=== PATIENT | male | born 1935 | race Caucasian/White ===

== ENCOUNTER 2021-11-29 11:25 | Observation (INO) ==
[2021-11-29] MEDS ORDERED: CeFAZolin Syr 2,000MG/20 ML 2,000 MG/20 ML SYRINGE IVPB ONE (11:40)
[2021-11-29] MEDS ORDERED: Ringers Solution, Lactated 1,000 ML IVC SCH ×2 (11:45→17:24)
[2021-11-29] MEDS ORDERED: Acetaminophen IV 1,000 MG/100 ML BAG IVPB ONE (12:30)
[2021-11-29] MEDS ORDERED: Albuterol 2.5 MG/3 ML NEBULIZER IH ONE (12:30)
[2021-11-29] MEDS ORDERED: Famotidine 20 MG/2 ML VIAL IVP ONE (12:30)
[2021-11-29] MEDS ORDERED: *HR* Remifentanil 1 MG VIAL IVP ONE (12:49)
[2021-11-29] MEDS ORDERED: Lidocaine HCL 4 ML Topical Solution (Laryng-O-Jet Kit Sterile Pak) TP ONE (13:14)
[2021-11-29] MEDS ORDERED: *HR* FentaNYL (PF) 100 MCG/2 ML VIAL ONE (13:14)
[2021-11-29] MEDS ORDERED: *HR* Propofol 200 MG/20 ML VIAL IVP ONE (13:14)
[2021-11-29] MEDS ORDERED: *HR* Rocuronium Bromide 50 MG/5 ML VIAL ONE (13:14)
[2021-11-29] MEDS ORDERED: Lidocaine -MPF 2% 5 ML VIAL ONE (13:14)
[2021-11-29] MEDS ORDERED: Ondansetron 4 MG/2 ML VIAL IVP PRN ×2 (14:04→17:24)
[2021-11-29] MEDS ORDERED: *HR* OxyCODONE Immed Rel 5 MG TABLET PO PRN (14:04)
[2021-11-29] MEDS ORDERED: Vancomycin 1,000 MG VIAL ONE ×2 (14:26→14:29)
[2021-11-29] MEDS ORDERED: Sugammadex Sodium 200 MG/2 ML VIAL IV ONE (15:46)
[2021-11-29] MEDS: *HR* FentaNYL (PF) 100 MCG/2 ML VIAL IVP PRN ×2 (16:32→16:39)
[2021-11-29] MEDS: *HR* HYDROmorphone PF 0.5 MG/0.5 ML SYRINGE IVP PRN ×2 (16:47→17:05)
[2021-11-29] MEDS ORDERED: Acetaminophen 325 MG TABLET PO PRN (17:24)
[2021-11-29] MEDS ORDERED: Naloxone 0.4 MG/ML INJ IVP PRN (17:24)
[2021-11-29] MEDS: Gabapentin 100 MG CAPSULE PO SCH (20:53)
[2021-11-29] MEDS: CeFAZolin 2 GM/120 ML BAG IVPB SCH (22:12)
[2021-11-29] MEDS: *HR* HYDROcodone/Acet 5/325 mg TABLET PO PRN (23:33)
[2021-11-30] MEDS: *HR* OxyCODONE Immed Rel 5 MG TABLET PO PRN ×2 (02:20→22:55)
[2021-11-30] MEDS: CeFAZolin 2 GM/120 ML BAG IVPB SCH (05:54)
[2021-11-30] MEDS: Multivit/Ca/Min/Fe/FA 1 TAB TABLET PO SCH (18:04)
[2021-11-30] MEDS: Gabapentin 100 MG CAPSULE PO SCH ×3 (18:04→22:55)
[2021-11-30] MEDS: Finasteride 5 MG TABLET PO SCH (18:04)
[2021-11-30] MEDS: Cholecalciferol (D-3) 1,000 UNIT (25MCG) TABLET PO SCH (18:04)
[2021-12-01 07:05] VITALS: BP 124/71; PULSE 77; TEMP 99.8; O2SAT 94
[2021-12-01] MEDS: Cholecalciferol (D-3) 1,000 UNIT (25MCG) TABLET PO SCH (09:17)
[2021-12-01] MEDS: Finasteride 5 MG TABLET PO SCH (09:17)
[2021-12-01] MEDS: Gabapentin 100 MG CAPSULE PO SCH (09:17)
[2021-12-01] MEDS: Multivit/Ca/Min/Fe/FA 1 TAB TABLET PO SCH (09:17)
[2021-12-01] MEDS: *HR* HYDROcodone/Acet 5/325 mg TABLET PO PRN (09:49)
== END 2021-12-01 13:30 | disposition home health service (06) ==
LOC: 4WAOSI 11:25 → SDCAOSI 11:25 → 4WAOSI 20:30
PROVIDERS: ADMIT Orthopaedic Surgery Orthopaedic Surgery of the Spine; ATTEND Orthopaedic Surgery Orthopaedic Surgery of the Spine